=== PATIENT | female | born 1955 | race Caucasian/White ===

== ENCOUNTER 2021-07-29 15:40 | Inpatient (IN) | payer OTHER, BC ==
[2021-07-29] MEDS ORDERED: Ondansetron PF 4 MG/2 ML Vial IVP PRN (17:55)
[2021-07-29] MEDS ORDERED: hydrALAZINE 20 MG/ML VIAL SLOW IVP PRN (17:55)
[2021-07-29] MEDS ORDERED: Ondansetron ODT 4 MG TAB PO PRN (17:55)
[2021-07-29] MEDS ORDERED: Dextrose 50% Abboject 50 ML SYRINGE SLOW IVP PRN ×2 (17:55→18:21)
[2021-07-29] MEDS ORDERED: Dextrose 5% in Water 1,000 ML IV PRN ×2 (17:55→18:21)
[2021-07-29] MEDS ORDERED: traMADol HCl 50 MG TAB PO PRN (18:05)
[2021-07-29] MEDS ORDERED: Acetaminophen 325 MG TAB PO SCH (18:30)
[2021-07-29 18:47] VITALS: BMI 39.3
[2021-07-29] MEDS ORDERED: Famotidine 20 MG TAB PO SCH (21:00)
[2021-07-29] MEDS: Cyclobenzaprine 10 MG TAB PO PRN (21:01)
[2021-07-29] MEDS: Lorazepam 1 MG TAB PO SCH (21:01)
[2021-07-29] MEDS: Senokot S 8.6-50 MG TAB PO SCH (21:02)
[2021-07-29] MEDS: busPIRone HCl 10 MG TAB PO SCH (21:02)
[2021-07-29] MEDS: traMADol HCl 50 MG TAB PO SCH (21:02)
[2021-07-29] MEDS: Acetaminophen 325 MG TAB PO SCH (21:14)
[2021-07-29] MEDS: Sodium Chloride 0.9% 1,000 ML IV SCH (23:25)
[2021-07-30] MEDS: Acetaminophen 325 MG TAB PO SCH ×3 (04:55→17:28)
[2021-07-30] MEDS: traMADol HCl 50 MG TAB PO SCH ×3 (06:10→17:29)
[2021-07-30] MEDS: Furosemide 40 MG TAB PO SCH (06:16)
[2021-07-30] MEDS: Morphine 2 MG/ML VIAL SLOW IVP PRN (06:45)
[2021-07-30 07:03] LABS: #Eosinphils 0.2 thou/uL (0.0-0.7); #Lymphocytes 1.9 thou/uL (1.20-3.40); #Monocytes 0.9 thou/uL (0.11-0.59); #Neutrophils 6.8 thou/uL (1.40-6.50); %Basophils 0.5 % (0.0-1.0); %Eosinophils 1.7 % (0.0-10.0); %Monocytes 9.2 % (0.0-10.0); %Neutrophils 69.6 % (42.0-75.0); Hemoglobin 12.2 g/dL (12.0-16.0); Mean Corpuscular HGB CONC 33.9 g/dL (32.0-36.0); Mean Corpuscular Hemoglobin 32.9 pg (27.0-31.0); Mean Platelet Volume 6.6 fL (7.4-10.4); Platelet Count 198 thou/uL (130-400); RBC Distribution Width 11.8 % (11.5-14.5); Red Blood Cell (RBC) Count 3.72 mill/uL (4.20-5.40); White Blood Cell (WBC) Count 9.7 thou/uL (4.8-10.8)
[2021-07-30 07:07] LABS: PTT 27.8 sec (22.9-36.1); Prothrombin Time 13.7 sec (12.0-14.7)
[2021-07-30 07:14] LABS: Anion Gap 14 mmol/L (10-20); BUN (Urea Nitrogen) 17 mg/dL (9.8-20.1); Calc. Creatinine Clearance 84 mL/min (70-130); Calcium 8.6 mg/dL (7.8-10.44); Carbon Dioxide 24 mmol/L (23-31); Chloride 107 mmol/L (98-107); Glucose 115 mg/dL (80-115); Potassium 4.3 mmol/L (3.5-5.1); Sodium 141 mmol/L (136-145)
[2021-07-30] MEDS ORDERED: Fentanyl 100 MCG/2 ML VIAL ONE ×2 (07:21→10:28)
[2021-07-30] MEDS ORDERED: Midazolam HCl 2 mg/2 ml Vial ONE (07:45)
[2021-07-30] MEDS ORDERED: CEFAZOLIN 2 GM in Premix Bag 1 BAG IVPB SCH (08:00)
[2021-07-30] MEDS ORDERED: Rocuronium Bromide 10 MG/ML (10ML VIAL) ONE (08:07)
[2021-07-30] MEDS ORDERED: Lidocaine 1% PF 5 ML VIAL ONE (08:07)
[2021-07-30] MEDS ORDERED: PROPOFOL 200 MG/20 ML VIAL ONE (08:07)
[2021-07-30] MEDS ORDERED: Dexamethasone 20 MG/5 ML VIAL ONE (08:07)
[2021-07-30] MEDS ORDERED: Ondansetron PF 4 MG/2 ML Vial ONE (08:07)
[2021-07-30] MEDS ORDERED: Ketorolac Tromethamine 30 MG/ML VIAL ONE (08:07)
[2021-07-30] MEDS ORDERED: Losartan 25 MG TAB PO SCH (09:00)
[2021-07-30] MEDS ORDERED: Promethazine HCl 25 MG/ML VIAL IM PRN (09:08)
[2021-07-30] MEDS ORDERED: Promethazine HCl 25 MG/ML VIAL IVPB PRN (09:08)
[2021-07-30] MEDS ORDERED: PACU-Morphine 4MG/ML VIAL SLOW IVP PRN (09:08)
[2021-07-30] MEDS ORDERED: HYDROmorphone 2 MG/ML VIAL SLOW IVP PRN (09:08)
[2021-07-30] MEDS ORDERED: Ondansetron HCl/PF 4 MG/2 ML Vial IVP PRN (09:08)
[2021-07-30] MEDS: busPIRone HCl 10 MG TAB PO SCH ×2 (13:22→20:40)
[2021-07-30] MEDS: buPROPion HCl 100 MG TAB PO SCH (13:22)
[2021-07-30] MEDS: Losartan 25 MG TAB PO SCH (13:23)
[2021-07-30] MEDS: lamoTRIgine 100 MG TAB PO SCH (13:24)
[2021-07-30] MEDS: risperiDONE 1 MG TAB PO SCH (13:24)
[2021-07-30] MEDS: Senokot S 8.6-50 MG TAB PO SCH ×2 (13:25→20:42)
[2021-07-30] MEDS: Bisoprolol Fumarate 5 MG TAB PO SCH (13:25)
[2021-07-30] MEDS: Polyethylene Glycol 3350 17 GM Packet PO SCH (13:25)
[2021-07-30] MEDS: CEFAZOLIN 2 GM in Premix Bag 1 BAG IVPB SCH ×2 (13:27→22:08)
[2021-07-30] MEDS: Sodium Chloride 0.9% 1,000 ML IV SCH (13:27)
[2021-07-30] MEDS: Lorazepam 1 MG TAB PO SCH (20:40)
[2021-07-30] MEDS: Cyclobenzaprine 10 MG TAB PO PRN (20:43)
[2021-07-31] MEDS: traMADol HCl 50 MG TAB PO SCH ×4 (00:19→18:07)
[2021-07-31] MEDS: Acetaminophen 325 MG TAB PO SCH ×4 (02:48→20:29)
[2021-07-31] MEDS: Morphine 2 MG/ML VIAL SLOW IVP PRN ×2 (02:53→06:43)
[2021-07-31 06:21] LABS: #Lymphocytes 1.7 thou/uL (1.20-3.40); #Monocytes 1.2 thou/uL (0.11-0.59); #Neutrophils 8.3 thou/uL (1.40-6.50); %Basophils 0.1 % (0.0-1.0); %Eosinophils 0.2 % (0.0-10.0); %Lymphocytes 15.4 % (21.0-51.0); %Monocytes 10.4 % (0.0-10.0); Hemoglobin 10.8 g/dL (12.0-16.0); Mean Corpuscular Hemoglobin 31.8 pg (27.0-31.0); Mean Corpuscular Volume 96.4 fL (78.0-98.0); Mean Platelet Volume 6.9 fL (7.4-10.4); Platelet Count 183 thou/uL (130-400); RBC Distribution Width 11.5 % (11.5-14.5); White Blood Cell (WBC) Count 11.2 thou/uL (4.8-10.8)
[2021-07-31 06:47] LABS: ALT (SGPT) 31 U/L (8-55); AST (SGOT) 23 U/L (5-34); Albumin 3.6 g/dL (3.4-4.8); Alkaline Phosphatase 59 U/L (40-110); Anion Gap 11 mmol/L (10-20); BUN (Urea Nitrogen) 13 mg/dL (9.8-20.1); Bilirubin, Total 0.4 mg/dL (0.2-1.2); Calc. Creatinine Clearance 91 mL/min (70-130); Calcium 8.5 mg/dL (7.8-10.44); Carbon Dioxide 26 mmol/L (23-31); Chloride 109 mmol/L (98-107); Globulin 2.1 g/dL (2.4-3.5); Glucose 113 mg/dL (80-115); Magnesium 1.9 mg/dL (1.6-2.6); Phosphorus 3.3 mg/dL (2.3-4.7); Potassium 4.2 mmol/L (3.5-5.1); Protein, Total 5.7 g/dL (5.8-8.1); Sodium 142 mmol/L (136-145)
[2021-07-31] MEDS: Furosemide 40 MG TAB PO SCH (07:29)
[2021-07-31] MEDS: Acetaminophen/Codeine 30-300mg Tablet PO SCH ×3 (07:30→20:23)
[2021-07-31] MEDS ORDERED: Morphine 2 MG/ML VIAL SLOW IVP SCH (07:45)
[2021-07-31] MEDS: Enoxaparin Sodium 40 MG/0.4 ML SYRINGE SC SCH (09:37)
[2021-07-31] MEDS: Losartan 25 MG TAB PO SCH (09:38)
[2021-07-31] MEDS: lamoTRIgine 100 MG TAB PO SCH (09:38)
[2021-07-31] MEDS: buPROPion HCl 100 MG TAB PO SCH (09:38)
[2021-07-31] MEDS: Bisoprolol Fumarate 5 MG TAB PO SCH (09:38)
[2021-07-31] MEDS: busPIRone HCl 10 MG TAB PO SCH ×2 (09:38→20:26)
[2021-07-31] MEDS: risperiDONE 1 MG TAB PO SCH (09:40)
[2021-07-31] MEDS: Gabapentin 300 MG CAP PO SCH ×3 (09:41→20:26)
[2021-07-31] MEDS: Polyethylene Glycol 3350 17 GM Packet PO SCH (09:43)
[2021-07-31] MEDS: Senokot S 8.6-50 MG TAB PO SCH ×2 (09:43→20:25)
[2021-07-31] MEDS: Cyclobenzaprine 10 MG TAB PO PRN (20:27)
[2021-07-31] MEDS: Lorazepam 1 MG TAB PO SCH (20:28)
[2021-08-01] MEDS: traMADol HCl 50 MG TAB PO SCH ×4 (00:06→18:21)
[2021-08-01] MEDS: Acetaminophen/Codeine 30-300mg Tablet PO SCH ×4 (02:13→20:19)
[2021-08-01 06:47] LABS: #Eosinphils 0.2 thou/uL (0.0-0.7); #Lymphocytes 2.3 thou/uL (1.20-3.40); #Neutrophils 4.9 thou/uL (1.40-6.50); %Basophils 0.1 % (0.0-1.0); %Eosinophils 2.8 % (0.0-10.0); %Monocytes 11.9 % (0.0-10.0); %Neutrophils 58.2 % (42.0-75.0); Hemoglobin 9.9 g/dL (12.0-16.0); Mean Corpuscular HGB CONC 33.5 g/dL (32.0-36.0); Mean Corpuscular Hemoglobin 32.5 pg (27.0-31.0); Mean Corpuscular Volume 97.1 fL (78.0-98.0); Mean Platelet Volume 6.8 fL (7.4-10.4); Platelet Count 176 thou/uL (130-400); RBC Distribution Width 11.7 % (11.5-14.5); Red Blood Cell (RBC) Count 3.04 mill/uL (4.20-5.40); White Blood Cell (WBC) Count 8.5 thou/uL (4.8-10.8)
[2021-08-01] MEDS: Enoxaparin Sodium 40 MG/0.4 ML SYRINGE SC SCH (08:52)
[2021-08-01] MEDS: Senokot S 8.6-50 MG TAB PO SCH ×3 (08:52→20:22)
[2021-08-01] MEDS: lamoTRIgine 100 MG TAB PO SCH (08:52)
[2021-08-01] MEDS: Losartan 25 MG TAB PO SCH (08:53)
[2021-08-01] MEDS: busPIRone HCl 10 MG TAB PO SCH ×2 (08:53→16:24)
[2021-08-01] MEDS: risperiDONE 1 MG TAB PO SCH ×2 (08:54→20:23)
[2021-08-01] MEDS: Furosemide 40 MG TAB PO SCH (08:54)
[2021-08-01] MEDS: Bisoprolol Fumarate 5 MG TAB PO SCH (08:56)
[2021-08-01] MEDS: Gabapentin 300 MG CAP PO SCH ×3 (08:56→20:21)
[2021-08-01] MEDS: buPROPion HCl 100 MG TAB PO SCH (08:56)
[2021-08-01] MEDS: Acetaminophen 325 MG TAB PO SCH ×3 (08:57→20:21)
[2021-08-01] MEDS: Polyethylene Glycol 3350 17 GM Packet PO SCH (09:01)
[2021-08-01] MEDS: Lorazepam 1 MG TAB PO SCH (20:22)
[2021-08-01] MEDS ORDERED: Acetaminophen/Codeine 30-300mg Tablet PO PRN (21:24)
[2021-08-01] MEDS: Ipratropium Bromide 2.5 ml Neb NEB SCH (23:33)
[2021-08-02] MEDS: Acetaminophen/Codeine 30-300mg Tablet PO SCH ×4 (01:47→20:43)
[2021-08-02 03:01] LABS: Bacteria/HPF None Seen HPF (None Seen); Bilirubin Negative (Negative); Blood, Urine Negative (Negative); Clarity Clear (Clear); Glucose, Urine (Dipstick) Normal (Negative); Ketone, Urine Negative (Negative); Leukocyte Negative Leu/uL (Negative); Nitrite Negative (Negative); Protein, Urine (Dipstick) Negative (Neg-Trace); RBC/HPF 0-3 HPF (0-3); Specific Gravity, Urine 1.011 (1.002-1.036); Squamous Epithelial 0-3 HPF (0-3); Urobilinogen Normal mg/dL (Less than 2); WBC/HPF 0-3 HPF (0-3); pH, Urine 5.5 (5.0-9.0)
[2021-08-02] MEDS: Ipratropium Bromide 2.5 ml Neb NEB SCH ×3 (07:33→19:41)
[2021-08-02] MEDS: Acetaminophen 325 MG TAB PO SCH ×3 (08:31→20:47)
[2021-08-02] MEDS: Bisoprolol Fumarate 5 MG TAB PO SCH (08:31)
[2021-08-02] MEDS: Bupropion 100 MG SR TAB PO SCH (08:31)
[2021-08-02] MEDS: Gabapentin 300 MG CAP PO SCH ×3 (08:32→20:45)
[2021-08-02] MEDS: Pramipexole Di-HCl 0.25 MG TAB PO SCH ×2 (08:33→20:47)
[2021-08-02] MEDS: Losartan 25 MG TAB PO SCH (08:33)
[2021-08-02] MEDS: busPIRone HCl 10 MG TAB PO SCH ×2 (08:34→16:38)
[2021-08-02] MEDS: lamoTRIgine 100 MG TAB PO SCH (08:35)
[2021-08-02] MEDS: Furosemide 40 MG TAB PO SCH (08:35)
[2021-08-02] MEDS: Polyethylene Glycol 3350 17 GM Packet PO SCH (08:36)
[2021-08-02] MEDS: Senokot S 8.6-50 MG TAB PO SCH ×2 (08:36→20:47)
[2021-08-02 08:51] LABS: #Basophils 0.1 thou/uL (0.0-0.2); #Eosinphils 0.3 thou/uL (0.0-0.7); #Neutrophils 4.6 thou/uL (1.40-6.50); %Basophils 0.8 % (0.0-1.0); %Eosinophils 3.9 % (0.0-10.0); %Lymphocytes 25.3 % (21.0-51.0); %Monocytes 12.2 % (0.0-10.0); %Neutrophils 57.8 % (42.0-75.0); Hemoglobin 10.1 g/dL (12.0-16.0); Mean Corpuscular HGB CONC 32.2 g/dL (32.0-36.0); Mean Corpuscular Hemoglobin 31.7 pg (27.0-31.0); Mean Corpuscular Volume 98.4 fL (78.0-98.0); Mean Platelet Volume 7.1 fL (7.4-10.4); Platelet Count 204 thou/uL (130-400); RBC Distribution Width 11.8 % (11.5-14.5); Red Blood Cell (RBC) Count 3.19 mill/uL (4.20-5.40)
[2021-08-02] MEDS ORDERED: Non-Formulary Item 1 EACH (Tiotropium Bromide 4 GM Inhaler) INH SCH (09:00)
[2021-08-02] MEDS: Enoxaparin Sodium 30 MG/0.3 ML SYRINGE SC SCH ×2 (09:45→20:49)
[2021-08-02] MEDS: risperiDONE 1 MG TAB PO SCH (20:44)
[2021-08-02] MEDS: Lorazepam 1 MG TAB PO SCH (20:44)
[2021-08-02] MEDS ORDERED: lamoTRIgine 100 MG TAB PO SCH (21:00)
[2021-08-03] MEDS: Ipratropium Bromide 2.5 ml Neb NEB SCH ×4 (00:12→20:25)
[2021-08-03] MEDS: Acetaminophen/Codeine 30-300mg Tablet PO SCH ×3 (02:38→14:48)
[2021-08-03] MEDS: busPIRone HCl 10 MG TAB PO SCH ×2 (09:04→17:52)
[2021-08-03] MEDS: Gabapentin 300 MG CAP PO SCH ×2 (09:05→14:46)
[2021-08-03] MEDS: Losartan 25 MG TAB PO SCH (09:08)
[2021-08-03] MEDS: Furosemide 40 MG TAB PO SCH (09:08)
[2021-08-03] MEDS: Pramipexole Di-HCl 0.25 MG TAB PO SCH (09:09)
[2021-08-03] MEDS: Polyethylene Glycol 3350 17 GM Packet PO SCH (09:09)
[2021-08-03] MEDS: Acetaminophen 325 MG TAB PO SCH ×2 (09:09→14:45)
[2021-08-03] MEDS: Enoxaparin Sodium 30 MG/0.3 ML SYRINGE SC SCH (09:10)
[2021-08-03] MEDS: Bupropion 100 MG SR TAB PO SCH (09:10)
[2021-08-03] MEDS: Bisoprolol Fumarate 5 MG TAB PO SCH (09:10)
[2021-08-03] MEDS: Senokot S 8.6-50 MG TAB PO SCH (09:11)
[2021-08-03 20:06] VITALS: BP 120/70; TEMP 98.1
== END 2021-08-03 20:25 | DRG 516 ==
LOC: SURG B 15:40 → OBSVTOIN 18:21
PROVIDERS: ADMIT Surgery; ATTEND Surgery
PROC: 0QSF04Z Reposition Left Patella with Internal Fixation Device, Open Approach (ICD-10-PCS; principal; 2021-07-30)
PROC: 0PSQXZZ Reposition Left Metacarpal, External Approach (ICD-10-PCS; 2021-07-30)
DX: S82.042A Displaced comminuted fracture of left patella, initial encounter for closed fracture (principal); F33.1 Major depressive disorder, recurrent, moderate; S62.317A Displaced fracture of base of fifth metacarpal bone, left hand, initial encounter for closed fracture; F41.9 Anxiety disorder, unspecified; I10 Essential (primary) hypertension; S02.2XXA Fracture of nasal bones, initial encounter for closed fracture; R74.01 Elevation of levels of liver transaminase levels; K21.9 Gastro-esophageal reflux disease without esophagitis; W01.0XXA Fall on same level from slipping, tripping and stumbling without subsequent striking against object, initial encounter; Z79.899 Other long term (current) drug therapy
CPT/HCPCS: 36415; 71045; 76000; 80048; 80053; 81001; 83735; 84100; 85025; 85610; 85730; 87086; 94640; J0690; J1100; J1650; J1885; J2250; J2270; J2405; J2704; J3010; J7050